=== PATIENT | female | born 1990 | race Caucasian/White ===

== ENCOUNTER 2022-01-08 18:38 | Emergency (ER) | payer OTHER, MEDICAID, SELFPAY ==
[2022-01-08 18:40] VITALS: BP 137/88; PULSE 98; RESP 18; TEMP 36.6; O2SAT 100; BMI 45.6
--- NOTE | 2022-01-08 19:07 | ED.HA ---
HPI - Headache General Chief Complaint: Headache Stated Complaint: Migraine/Chest Pain/Back Pain/Blurry Vision Time Seen by Provider: 01/08/22 18:56 Source: patient Mode of arrival: Ambulatory History of Present Illness HPI Narrative: Patient is a 31-year-old female who is here for evaluation of a headache and neck pain and right shoulder/right chest discomfort. Patient states that her symptoms started approximately 3 days ago. She does have a history of migraines for this feels somewhat different than prior migraines. None of her home remedies have helped situation. She is having some blurry vision. Some nausea but no vomiting. No fevers. No specific trauma. Related Data Allergies Allergy/AdvReac Type Severity Reaction Status Date / Time Penicillins [PENICILLINS] Allergy Severe Unverified 01/05/18 12:20 Review of Systems Review of Systems ROS Unobtainable: All systems reviewed & are unremarkable except as noted in HPI and below Patient History Medical History Migraine Social History Smoking Status: Never smoker Smoking Status: Never smoker Substance Use Type: does not use Exam Initial Vital Signs Initial Vital Signs: Vital Signs Temperature 97.8 F 01/08/22 18:40 Pulse Rate 98 H 01/08/22 18:40 Respiratory Rate 18 01/08/22 18:40 Blood Pressure 137/88 01/08/22 18:40 Pulse Oximetry 100 01/08/22 18:40 Const General: cooperative, comfortable and well developed HENMT Head: normal to inspection and normocephalic Face and sinus: normal facial exam Eyes Pupils: PERRL EOM: EOM intact bilaterally Neck Neck: no meningeal signs Other: Patient does have tenderness to palpation paraspinal region both left and right cervical region. Chest Other: Tenderness to palpation right superior anterior chest Resp Effort & Inspection: normal respiratory effort Cardio Rate: regular rate Skin General: no rashes or lesions noted Neuro General: patient alert, patient awake, patient oriented x3 and moves all extremities Cranial Nerves: CN's II-XI intact bilaterally Extrem General: normal to inspection Course Orders Ordered: ED Orders 01/08/22 19:09 EKG-12 Lead Stat Discontinued Medications Acetaminophen (Acetaminophen 325 Mg Tablet) 650 mg PO NOW ONE Stop: 01/08/22 19:09 Last Admin: 01/08/22 19:20 Dose: 650 mg Documented by: ANDRES Diphenhydramine HCl (Diphenhydramine 50 Mg/Ml Vial) 25 mg IV NOW ONE Stop: 01/08/22 19:09 Last Admin: 01/08/22 19:23 Dose: 25 mg Documented by: ANDRES Sodium Chloride (Normal Saline 0.9%) 1,000 mls @ 1,000 mls/hr IV BOLUS ONE Stop: 01/08/22 20:07 Last Infusion: 01/08/22 21:05 Dose: 0 mls/hr Documented by: Admin: 01/08/22 19:25 Dose: 1,000 mls/hr Documented by: ANDRES Ketorolac Tromethamine (Ketorolac 30 Mg/Ml Vial) 30 mg IV NOW ONE Stop: 01/08/22 19:09 Last Admin: 01/08/22 19:22 Dose: 30 mg Documented by: ANDRES Metoclopramide HCl (Metoclopramide 10 Mg/2 Ml Inj) 10 mg IV NOW ONE Stop: 01/08/22 19:09 Last Admin: 01/08/22 19:21 Dose: 10 mg Documented by: ANDRES Vital Signs Vital signs: Vital Signs - 8 hr 01/08/22 18:40 01/08/22 20:00 01/08/22 21:00 Temperature 97.8 F Pulse Rate 98 H 87 97 H Respiratory Rate 18 18 16 Blood Pressure 137/88 133/64 134/58 L Pulse Oximetry 100 100 98 MDM - Headache Lab Data Labs: Point of Care Testing Test Results Negative MDM Narrative Medical decision making narrative: Patient reports improvement of symptoms after the above-stated therapies. She is afebrile. Low suspicion for meningitis based on her presenting symptoms. Also low suspicion for intracranial hemorrhage based on her presenting symptoms as well. I feel we can hold on any radiologic studies for now. Patient states she is feeling well enough that she can be discharged home. She was given strict return precautions. She expressed understanding and agreement. Discharge Plan Departure Patient Disposition: Home Clinical Impression: Headache Instructions: DI for Headache Activity Restrictions/Additional Instructions: Do recommend that you continue to try to make contact with the primary doctor for more definitive workup of your headaches. You have no restrictions on your activities. Return to the emergency department for any new or worsening symptoms. Referrals: Miscellaneous,Doctor, MD [Primary Care Provider] - Stand Alone Forms: Work Release Note
[2022-01-08] MEDS: ACETAMINOPHEN 325 MG TABLET 650 MG PO (19:20)
[2022-01-08] MEDS: METOCLOPRAMIDE 10 MG/2 ML INJ IV (19:21)
[2022-01-08] MEDS: KETOROLAC 30 MG/ML VIAL IV (19:22)
[2022-01-08] MEDS: diphenhydrAMINE 50 MG/ML VIAL 25 MG IV (19:23)
[2022-01-08] MEDS: SODIUM CHLORIDE 0.9% 1,000 ML 1000 ML IV (19:25)
[2022-01-08 20:00] VITALS: BP 133/64; PULSE 87; RESP 18; O2SAT 100
--- NOTE | 2022-01-08 20:39 | PC.NURSE ---
Addendum entered by Mikaela Lai R.N. 01/08/22 20:40: right clavicle. Original Note: Pt reports improvement in headache, continued pain across righ
[2022-01-08 21:00] VITALS: BP 134/58; PULSE 97; RESP 16; O2SAT 98
== END 2022-01-08 21:10 | disposition home or self-care (01) ==
PROVIDERS: Emergency Provider Emergency Medicine
DX: R51.9 Headache, unspecified (principal); I44.0 Atrioventricular block, first degree
CPT/HCPCS: 81025; 93005; 93010; 96374; 96375; 99284; J1200; J1885; J2765